=== PATIENT | male | born 1985 ===

== ENCOUNTER 2017-11-13 10:13 | Observation (INO) ==
[2017-11-13] MEDS ORDERED: ceFAZolin 1,000 MG VIAL ONE (14:09)
[2017-11-13] MEDS ORDERED: CHLORHEXIDINE 0.12% ORAL RINSE 60 ML BOTTLE SWISH/SPIT ONE (14:09)
[2017-11-13] MEDS ORDERED: LIDOCAINE 2%/EPI 1:100,000 DENTAL 1.7 ML CARTRIDGE DENTAL ONE ×3 (14:46→15:03)
[2017-11-13] MEDS ORDERED: BACITRACIN OINT 0.9 GM PACK TOP ONE (16:16)
[2017-11-13] MEDS ORDERED: HYDROmorphone 2 MG/1 ML VIAL ONE (16:47)
[2017-11-13] MEDS ORDERED: PROPOFOL 200 MG/20 ML VIAL IV ONE (16:47)
[2017-11-13] MEDS ORDERED: SEVOFLURANE 1 UNIT/15 MINUTE INH ONE (16:47)
[2017-11-13] MEDS ORDERED: ROCURONIUM 100 MG/10 ML VIAL IV ONE (16:48)
[2017-11-13] MEDS ORDERED: fentaNYL 100 MCG/2 ML VIAL ONE (16:48)
[2017-11-13] MEDS ORDERED: LACTATED RINGERS 1,000 ML IV ONE (16:48)
[2017-11-13] MEDS ORDERED: MIDAZOLAM 2 MG/2 ML VIAL ONE (16:48)
[2017-11-13] MEDS ORDERED: ACETAMINOPHEN 1,000 MG/100 ML VIAL IV ONE (16:48)
[2017-11-13] MEDS ORDERED: ONDANSETRON 4 MG/2 ML VIAL ONE (16:49)
[2017-11-13] MEDS ORDERED: ONDANSETRON 4 MG/2 ML VIAL IV PRN (17:31)
[2017-11-13] MEDS ORDERED: HYDROmorphone 2 MG/1 ML VIAL IV STA (17:31)
[2017-11-13] MEDS ORDERED: SODIUM CHLORIDE 0.9% 1,000 ML IV STA (17:31)
[2017-11-13 23:09] VITALS: BP 129/81
== END 2017-11-13 22:25 | disposition home or self-care (01) ==
LOC: EDUNIT# → EDBD → N.ED 10:13 → N.EDINP 10:13 → N.3E 13:12
PROVIDERS: ADMIT Dentist Oral and Maxillofacial Surgery; ATTEND Dentist Oral and Maxillofacial Surgery